=== PATIENT | female | born 1950 | race Caucasian/White ===

== ENCOUNTER 2019-03-22 11:19 | Emergency (ER) | payer OTHER ==
[~2019-03-22] VITALS: Ht 157.5 cm; Wt 90.7 kg
[~2019-03-22 11:19] MED LIST: CLARITIN10 MG PO; FLONASE 0.05%50 MCG NASAL; LEVOTHYROXINE0.05 MG PO; LIPITOR10 MG PO; METFORMIN HCL500 MG PO; PANTOPRAZOLE SO40 M1 PO; SERTRALINE HCL100 MG PO
[2019-03-22 12:34] LABS: ABSOLUTE NEUTROPHILS 4.7 thou/uL (1.4-8.2); BASOPHILS 1.2 % (0.0-2.0); EOSINOPHILS 2.2 % (0.0-3.0); HEMATOCRIT 40.8 % (37.0-47.0); HEMOGLOBIN 13.4 gm/dL (12.0-15.0); LYMPHOCYTES 20.2 % (24.0-44.0); MCH 28.6 pg (26.0-34.0); MCHC 32.7 g/dL (28.0-37.0); MCV 87.4 fL (80.0-100.0); MONOCYTES 6.8 % (1.0-8.0); PLATELET COUNT 290 thou/uL (150-400); POLYS 69.6 % (36.0-66.0); RBC 4.66 mil/uL (4.20-5.00); RDW 13.9 % (10.5-14.5); WBC 6.8 thou/uL (4.0-11.0)
[2019-03-22 12:47] LABS: CALCIUM 9.5 mg/dL (8.5-10.1); CREATININE 0.9 mg/dL (0.6-1.0); POTASSIUM 4.3 mmol/L (3.5-5.1)
[2019-03-22 16:03] VITALS: BP 127/59
== END 2019-03-22 16:03 | disposition home or self-care (01) ==
LOC: ER 11:19
PROVIDERS: Emergency Medicine
DX: S71.112A Laceration without foreign body, left thigh, initial encounter (principal); E03.9 Hypothyroidism, unspecified; F41.9 Anxiety disorder, unspecified; Z90.49 Acquired absence of other specified parts of digestive tract; Z87.891 Personal history of nicotine dependence; Z88.6 Allergy status to analgesic agent; W26.0XXA Contact with knife, initial encounter; Y93.89 Activity, other specified; Y92.89 Other specified places as the place of occurrence of the external cause; Y99.8 Other external cause status

== ENCOUNTER 2020-10-15 12:16 | Emergency (ER) | payer OTHER ==
[~2020-10-15] VITALS: Ht 157.5 cm; Wt 95.3 kg
[2020-10-15 14:10] VITALS: BP 139/61
[2020-10-15] MEDS ORDERED: NORCO5 PO (14:24)
== END 2020-10-15 14:26 | disposition home or self-care (01) ==
LOC: ER 12:16
DX: M25.562 Pain in left knee (principal); E03.9 Hypothyroidism, unspecified; Z90.89 Acquired absence of other organs; F17.210 Nicotine dependence, cigarettes, uncomplicated; Z88.8 Allergy status to other drugs, medicaments and biological substances